=== PATIENT | male | born 1980 | race Asian ===

== ENCOUNTER 2017-03-31 09:37 | Emergency (ER) | payer BC ==
[~2017-03-31] VITALS: Ht 172.7 cm; Wt 88.5 kg
== END 2017-03-31 10:52 | disposition home or self-care (01) ==
LOC: ED 09:37
DX: K52.9 Noninfective gastroenteritis and colitis, unspecified (principal); R42 Dizziness and giddiness; R19.7 Diarrhea, unspecified; R11.2 Nausea with vomiting, unspecified; R03.0 Elevated blood-pressure reading, without diagnosis of hypertension
CPT/HCPCS: 99281

== ENCOUNTER 2017-11-14 13:49 | Outpatient (CLI) | payer BC | END 2017-11-14 23:59 | disposition home or self-care (01) | LOC: RAD 13:49 | DX: M54.2 Cervicalgia (principal) ==

== ENCOUNTER 2019-01-13 15:01 | Outpatient (CLI) | payer BC | END 2019-01-13 20:31 | disposition home or self-care (01) | LOC: RAD 15:01 | DX: M54.5 Low back pain (principal) ==

== ENCOUNTER 2019-04-12 13:05 | Emergency (ER) | payer OTHER, BC ==
[~2019-04-12] VITALS: Ht 172.7 cm; Wt 90.7 kg
[2019-04-12 14:08] LABS: PLATELET COUNT 228 K/uL (142-355)
[2019-04-12 14:19] LABS: POTASSIUM 4.6 mmol/L (3.6-5.2); SODIUM 139 mmol/L (136-145)
[2019-04-12 15:14] VITALS: BP 135/66; TEMP 98.2
== END 2019-04-12 15:20 | disposition home or self-care (01) ==
LOC: ED 13:05
PROVIDERS: Family Medicine
DX: I31.9 Disease of pericardium, unspecified (principal); R42 Dizziness and giddiness; R07.89 Other chest pain
CPT/HCPCS: 80053; 82550; 84484; 85027; 93005; 99283

== ENCOUNTER 2021-06-15 14:24 | Outpatient (CLI) | payer BC | END 2021-06-15 19:15 | disposition home or self-care (01) | LOC: MRI 14:24 | PROVIDERS: ATTEND Specialist | DX: R42 Dizziness and giddiness (principal); H93.13 Tinnitus, bilateral | CPT/HCPCS: 36415; 82565; 84520; A9576 ==

== ENCOUNTER 2021-07-21 09:01 | Outpatient (CLI) | payer BC | END 2021-07-21 21:01 | disposition home or self-care (01) | LOC: LABW 09:01 | PROVIDERS: ATTEND Specialist | DX: R42 Dizziness and giddiness (principal) | CPT/HCPCS: 36415; 84436; 84443; 85652; 86225 ==